=== PATIENT | female | born 1990 | race Caucasian/White ===

== ENCOUNTER → 2021-11-03 08:11 | Outpatient (BNVA) | payer OTHER, SELFPAY | PROVIDERS: PCP Pediatrics; Visit Provider Obstetrics & Gynecology | DX: O99.331 Smoking (tobacco) complicating pregnancy, first trimester (principal) | CPT/HCPCS: 81025; 99212 ==

== ENCOUNTER 2021-11-04 08:57 | Outpatient (REF) | payer OTHER, SELFPAY ==
--- NOTE | ~2021-11-04 | US_ITS ---
EXAMINATION: US OBSTETRICAL ULTRASOUND CLINICAL INFORMATION: Encounter for supervision of normal COMPARISON: None. LMP: 09/12/2021. Gestational age by maternal dates is 7 weeks 4 days. Estimated date of delivery by maternal dates is 06/19/2022. TECHNIQUE: Transabdominal and transvaginal first trimester OB ultrasound FINDINGS: There is an intrauterine gestational sac and yolk sac. Mean sac diameter suggests gestational age of 6 weeks 2 days. This is behind date from LMP. No pole is seen. The right ovary measures 3.1 x 2 x 2.3 cm. There is a 1.4 cm right ovarian cyst. The left ovary measures 2.9 x 1.7 x 1.8 cm. There is no fluid in the pelvis. US/US OB pelvic and transvaginal IMPRESSION: Intrauterine gestational sac and yolk sac. No pole seen. This may be due to early gestational age. Mean sac diameter suggests gestational age of 6 weeks 2 days which is behind date from LMP.
== END 2021-11-04 08:58 | disposition home or self-care (01) ==
LOC: HO.US 08:57
PROVIDERS: PCP Pediatrics; Visit Provider Obstetrics & Gynecology
DX: Z34.90 Encounter for supervision of normal pregnancy, unspecified, unspecified trimester (principal)
CPT/HCPCS: 76801; 76817

== ENCOUNTER → 2021-11-08 09:12 | Outpatient (BNVA) | payer OTHER, SELFPAY | PROVIDERS: Visit Provider Obstetrics & Gynecology | DX: O34.81 Maternal care for other abnormalities of pelvic organs, first trimester (principal); N83.201 Unspecified ovarian cyst, right side | CPT/HCPCS: Q3014 ==

== ENCOUNTER 2021-11-15 14:47 | Outpatient (REF) | payer OTHER, SELFPAY ==
--- NOTE | ~2021-11-15 | US_ITS ---
EXAMINATION: US OBSTETRICAL PELVIC US TRANSVAGINAL CLINICAL INFORMATION: . Follow-up. COMPARISON: Ultrasound 11/04/2021. LMP: 09/12/2021. Gestational age by maternal dates is approximately 9 weeks. Estimated date of delivery by maternal dates is 06/19/2022. TECHNIQUE: Transabdominal ultrasound imaging of pelvis is performed. FINDINGS: There is a single intrauterine gestational sac with visible yolk sac, embryo/fetus, and cardiac activity. There is no significant subchorionic hemorrhage or hematoma. HR: Heart beat is visualized; however, heart rate could not be recorded. CRL (crown rump length): 0.37 cm (6 weeks and 1 day +/- 4 days). CASEY (estimated date of delivery): 07/10/2022 +/- 4 days. MATERNAL ADNEXA: The right maternal ovary measures 2.9 x 1.6 x 2.1 cm. No focal lesion seen. The left maternal ovary measures 1.9 x 1.5 x 2.0 cm. No focal lesion seen. There is no significant maternal adnexal mass. No maternal pelvic ascites. US/US OB pelvic and transvaginal IMPRESSION: 1. Single intrauterine gestation with ultrasound gestational age of 6 weeks and 1 day +/- 4 days. 2. Estimated date of delivery is 07/10/2022 +/- 4 days. 3. No maternal adnexal mass or pelvic ascites.
== END 2021-11-15 14:48 | disposition home or self-care (01) ==
LOC: HO.US 14:47
PROVIDERS: PCP Pediatrics; Visit Provider Obstetrics & Gynecology
DX: Z34.91 Encounter for supervision of normal pregnancy, unspecified, first trimester (principal); Z3A.01 Less than 8 weeks gestation of pregnancy
CPT/HCPCS: 76801; 76817

== ENCOUNTER → 2021-11-16 15:22 | Outpatient (BNVA) | payer OTHER, SELFPAY | PROVIDERS: Visit Provider Obstetrics & Gynecology | DX: Z13.89 Encounter for screening for other disorder (principal) ==